=== PATIENT | female | born 1945 | race Caucasian/White ===

== ENCOUNTER 2016-11-21 21:22 | Emergency (ER) | payer MEDICARE, OTHER ==
--- NOTE | 2016-11-21 21:40 | EDM.PDOC ---
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 at [facility] normally does not use a walker or a cane pt declined pain meds on several occasions Allergies/ADRs: Allergies No Known Allergies Allergy (Verified 11/21/16 21:27) Home Medications: Ambulatory Orders Levothyroxine [Sythroid] 100 mcg PO DAILY 11/21/16 [Confirmed 11/21/16] Metoprolol Tartrate [Lopressor] 50 mg PO BID 11/21/16 [Confirmed 11/21/16] OLANZapine [Zyprexa] 15 mg PO BEDTIME 11/21/16 [Confirmed 11/21/16] amLODIPine [Norvasc] 5 mg PO DAILY 11/21/16 [Confirmed 11/21/16] Review of Systems - Review of Systems Review Of Systems: See Below Constitutional: Reports: no symptoms Eyes: Reports: no symptoms Ears: Reports: no symptoms Nose: Reports: no symptoms Mouth/Throat: Reports: no symptoms Respiratory: Reports: No Symptoms Cardiovascular: Reports: no symptoms GI/Abdominal: Reports: No symptoms Genitourinary: Reports: no symptoms Musculoskeletal: Reports: other (R hip pain, no radiation, lateral and posterior ) Skin: Reports: no symptoms Neurological: Reports: No Symptoms Psychiatric: Reports: no symptoms Trauma Exam - Physical Exam Exam: See Below Exam Limited By: No limitations General Appearance: Reports: alert, WD/WN, no apparent distress Head: Reports: atraumatic, normocephalic Eyes: bilateral eye: normal inspection Ears: Reports: normal external exam, hearing grossly normal Nose: Reports: normal inspection, normal mucousa, no blood Throat/Mouth: Reports: Normal inspection, Normal lips, Normal teeth, Normal gums , Normal oropharynx, Normal voice, No airway compromise Neck: Reports: non-tender, full range of motion, normal alignment, normal inspection Respiratory Exam: Reports: no respiratory distress, lungs clear, normal breath sounds Cardiovascular: Reports: normal peripheral pulses, regular rate, rhythm, no edema, no gallop, no JVD, no murmur, no rub, other (2+ DP pulses b/l) GI/Abdominal: Reports: soft, non tender Back: Reports: full range of motion, normal inspection, non-tender Extremities: Reports: other (NT with gentle rocking of pelvis, pelvis NT, L- spine NT, no back spasm, some tenderness palpating hip laterally, no shortening) Skin: Reports: Normal color, Warm/dry Course - Vital Signs Last Recorded V/S: Last Vital Signs Temp 36.3 C 11/21/16 21:35 Pulse 66 11/21/16 21:35 Resp 18 11/21/16 21:35 BP 157/83 H 11/21/16 21:35 Pulse Ox 96 11/21/16 21:35 - Orders/Labs/Meds Orders: Active Orders 24 hr Category Date Time Status Hip Min 2V or 3V Rt [CR] Stat Exams 11/21/16 21:35 Ordered - Re-Assessments/Exams Free Text/Narrative Re-Assessment/Exam: 11/21/16 22:14 XR R hip shows a THR on that side with a fx through the proximal redding femur about 1/[address] down the intramedullary component of the prosthesis, minimal separation. Call placed to [facility] to arrange transfer. Free Text/Narrative Re-Assessment/Exam: 11/21/16 22:52 d/w Dr Win hospitalist at [facility] who accepted pt in transfer Departure - Departure Time of Disposition: 22:16 Disposition: DC/Tfer to Other 70 Condition: good Clinical Impression: Right femoral shaft fracture Referrals: Gerardo Henderson MD [Primary Care Provider] - Forms: ED Department Discharge - My Orders Last 24 Hours: My Active Orders 11/21/16 21:35 Hip Min 2V or 3V Rt [CR] Stat - Assessment/Plan Last 24 Hours: My Active Orders 11/21/16 21:35 Hip Min 2V or 3V Rt [CR] Stat
[2016-11-21 23:25] VITALS: BP 149/72
--- NOTE | 2016-11-22 11:35 | CR ---
INDICATION: Fall, pain. RIGHT HIP: Three AP images of the right femur were obtained, including the right hip, and revealed a JEANNINE, which remains in good position and alignment. However, compared with the previous [facility] study of 10/26/2015, there is now an acute fracture site at the lesser trochanter - proximal shaft medially of the femur and extending into the lateral shaft area near the greater trochanter on an oblique line. There also is evidence of loosening of the femoral component with decreased density about the lateral aspect of the femoral shaft component of the total hip arthroplasty. There are some mild degenerative changes noted at the knee joint. IMPRESSION: Fracture through the proximal shaft below the trochanters on an oblique with minimal distraction - approximately 7 mm along the medial and lateral portions of the fracture line. MTDD
== END 2016-11-21 23:26 | disposition other institution (70) ==
LOC: FB.ED 21:22
DX: M97.01XA Periprosthetic fracture around internal prosthetic right hip joint, initial encounter (principal); Z79.899 Other long term (current) drug therapy; W18.40XA Slipping, tripping and stumbling without falling, unspecified, initial encounter
CPT/HCPCS: 73502-RT; 99283; 99285